=== PATIENT | female | born 1955 | race Two or more races ===

== ENCOUNTER 2017-04-09 00:22 | Emergency (ER) | payer MEDICAID ==
[~2017-04-09] VITALS: Ht 152.4 cm; Wt 64.9 kg
[2017-04-09 00:50] VITALS: BP 112/80
[2017-04-09] MEDS ORDERED: Acetaminophen 500mg (ES) tab ORAL ONE (02:30)
[2017-04-09 02:50] VITALS: BP 112/63
[2017-04-09] MEDS ORDERED: Meclizine 25mg tab ORAL ONE (03:15)
[2017-04-09] MEDS ORDERED: MECLIZINE HCL25 MG ORAL (03:30)
--- NOTE | 2017-04-09 03:30 | Emergency Room Report ---
History of Present Illness General Chief Complaint: Headache Source: Patient Present Illness HPI Is a 61-year-old female with a history of vertigo and chronic headache. She also claims has a history of seizure. Patient presents with chief complaint of headache and vertigo symptoms. She said this started today. She claimed that she was in [place] her doctor's office and had vertigo and syncope. She left there and somehow made her way here. Able to walk here without any difficulty. Complaining of headache is 8/10 throbbing in nature. No nausea no vomiting. Said that room is spinning. Denies any other complaint. This occur frequently. Allergies: Coded Allergies: ACETAMINOPHEN (Verified Allergy, Unknown, 04/09/17) CODEINE (Verified Allergy, Unknown, 04/09/17) ERYTHROMYCIN BASE (Verified Allergy, Unknown, 04/09/17) HYDROCODONE (Verified Allergy, Unknown, 04/09/17) HYDROMORPHONE (Verified Allergy, Unknown, 04/09/17) IBUPROFEN (Verified Allergy, Unknown, 04/09/17) OXYCODONE (Verified Allergy, Unknown, 04/09/17) PHENOBARBITAL (Verified Allergy, Unknown, 04/09/17) Patient History Past Medical History: see triage record, old chart reviewed Past Surgical History: other Pertinent Family History: none Social History: Denies: smoking Now: No Immunizations: other Reviewed Nursing Documentation: PMH: Agreed, PSxH: Agreed Nursing Documentation-PMH Hx Cerebrovascular Accident: Yes Hx Seizures: Yes Review of Systems Eye: Denies: eye pain, blurred vision ENT: Denies: ear pain, nose congestion, throat swelling Respiratory: Denies: cough, shortness of breath Cardiovascular: Denies: chest pain, palpitations Gastrointestinal: Denies: abdominal pain, diarrhea, nausea, vomiting Musculoskeletal: Denies: back pain, joint pain Skin: Denies: rash Neurological: Reports: headache, Denies: numbness Endocrine: Denies: increased thirst, increased urine Hematologic/Lymphatic: Denies: easy bruising All Other Systems: negative except mentioned in HPI Physical Exam Vital Signs Date Time Temp Pulse Resp B/P (MAP) Pulse Ox O2 Delivery O2 Flow Rate FiO2 04/09/17 00:27 98.2 88 16 112/80 99 Room Air vitals normal Sp02 EP Interpretation: reviewed, normal General Appearance: well appearing, no apparent distress, alert Head: normocephalic, atraumatic Eyes: bilateral eye PERRL, bilateral eye EOMI ENT: hearing grossly normal, normal pharynx Neck: full range of motion, supple, no meningismus Respiratory: chest non-tender, lungs clear, normal breath sounds Cardiovascular #1: regular rate, rhythm, no murmur Gastrointestinal: normal bowel sounds, non tender, no mass, no organomegaly, no bruit, non-distended Musculoskeletal: back normal, gait/station normal, normal range of motion Psychiatric: mood/affect normal Skin: warm/dry Medical Decision Making Diagnostic Impression: Primary Impression: Headache Qualified Codes: R51 - Headache Additional Impression: Dizziness ER Course Patient complaining of vertigo/dizziness/headache. I see no evidence of meningitis, sepsis, bleed or neoplastic process. I suspect is a strong psychiatric component. She sleeping comfortably. We'll discharge home. CT/MRI/US Diagnostic Results CT/MRI/US Diagnostic Results : Imaging Test Ordered: CT head Impression negative per radiologist Last Vital Signs Date Time Temp Pulse Resp B/P (MAP) Pulse Ox O2 Delivery O2 Flow Rate FiO2 04/09/17 00:50 98.2 88 16 112/80 99 Room Air Status: improved Disposition: HOME, SELF-CARE Condition: Stable Scripts Meclizine Hcl* (MECLIZINE*) 25 Mg Tablet 50 MG ORAL THREE TIMES A DAY, #30 TAB Prov: ALEXIS POWELL M.D. 04/09/17 Referrals: NON PHYSICIAN (PCP) Patient Instructions: General Headache Without Cause Additional Instructions: Followup your Dr. in 7 days. Return if worse. ALEXIS POWELL M.D. Apr 09, 2017 03:30
[2017-04-09 03:40] VITALS: BP 112/63
--- NOTE | 2017-04-09 11:29 | Diagnostic Imaging Report ---
Indication: Reason For Exam: PAIN Technique: Continuous helical CT scanning of the head was performed without intravenous contrast material. Axial and coronal 5 mm sections were generated. Radiation dose was minimized using automated exposure control Dose: Total Dose Length Product - DLP 1330.[address] Dose Index - CTDIvol(s) 70.38 mGy. Comparison: none Findings: The ventricular system is normal in size and configuration. There is no shift of midline structures. No abnormal extra-axial fluid collections are noted. There is no evidence of intracerebral bleeding. No other abnormal high or low density areas are noted within the brain. There is minimal mucosal thickening within the nasal fossa. Sinuses are clear. The calvarium is intact. The mastoids are clear. The orbits are unremarkable. Impression: Normal CT scan of the head without contrast material. The CT scanner at [facility] is accredited by the [employer] and the scans are performed using protocols designed to limit radiation exposure to as low as reasonably achievable to attain images of sufficient resolution adequate for diagnostic evaluation.
== END 2017-04-09 03:40 | disposition home or self-care (01) ==
LOC: EMR 01:40
DX: R51 Headache (principal); R42 Dizziness and giddiness; Z86.73 Personal history of transient ischemic attack (TIA), and cerebral infarction without residual deficits; Z86.69 Personal history of other diseases of the nervous system and sense organs; Z88.6 Allergy status to analgesic agent; Z88.8 Allergy status to other drugs, medicaments and biological substances
CPT/HCPCS: 70450; 99284